=== PATIENT | male | born 1980 | race Caucasian/White ===

== ENCOUNTER 2021-09-13 10:47 | Emergency (ER) | payer OTHER ==
[~2021-09-13] VITALS: Ht 177.8 cm; Wt 121.1 kg
[2021-09-13 10:51] VITALS: BP 147/99
--- NOTE | 2021-09-13 11:05 | NUR ---
Antoinette farris in ED - 09/13/21 at 1139 by [email or web address] PT AMBULATED TO [facility], STEADY GAIT
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
[2021-09-13 12:06] VITALS: BP 147/99
--- NOTE | 2021-09-13 12:06 | NUR ---
Patient discharged with v/s stable. Written and verbal after care instructions given and explained. Patient alert, oriented and verbalized understanding of instructions. Ambulatory with steady gait. All questions addressed prior to discharge. ID band removed. Patient advised to follow up with PMD. Opportunity to ask questions provided and answered.
== END 2021-09-13 12:06 | disposition home or self-care (01) ==
LOC: MED 10:47
DX: F79 Unspecified intellectual disabilities (principal); E78.00 Pure hypercholesterolemia, unspecified; E11.9 Type 2 diabetes mellitus without complications; V98.8XXA Other specified transport accidents, initial encounter; Y93.89 Activity, other specified; Y92.89 Other specified places as the place of occurrence of the external cause; Y99.8 Other external cause status
CPT/HCPCS: 99282